=== PATIENT | male | born 1995 | race Hispanic/Latino ===

== ENCOUNTER 2021-06-29 05:03 | Emergency (ER) | payer SELFPAY ==
[2021-06-29] MEDS ORDERED: HYDROcodone/Acetaminophen 5/325 mg Tablet ONE (06:20)
== END 2021-06-29 06:26 | disposition home or self-care (01) ==
LOC: BURERS 05:03
DX: S42.402A Unspecified fracture of lower end of left humerus, initial encounter for closed fracture (principal); I10 Essential (primary) hypertension; W11.XXXA Fall on and from ladder, initial encounter
CPT/HCPCS: 29105

== ENCOUNTER 2023-09-07 17:18 | Emergency (ER) | payer SELFPAY ==
[2023-09-07] MEDS ORDERED: Ondansetron PF 4 MG/2 ML Vial ONE (17:40)
[2023-09-07 17:55] LABS: #Eosinphils 0.2 thou/uL (0.0-0.7); #Monocytes 0.3 thou/uL (0.11-0.59); #Neutrophils 5.7 thou/uL (1.40-6.50); %Basophils 0.5 % (0.0-1.0); %Eosinophils 2.9 % (0.0-10.0); %Lymphocytes 13.8 % (21.0-51.0); %Monocytes 3.9 % (0.0-10.0); %Neutrophils 78.9 % (42.0-75.0); Hematocrit 48.5 % (42.0-52.0); Hemoglobin 16.1 g/dL (14.0-18.0); Mean Corpuscular HGB CONC 33.2 g/dL (32.0-36.0); Mean Corpuscular Hemoglobin 30.6 pg (27.0-31.0); Mean Corpuscular Volume 92.2 fl (78.0-98.0); Mean Platelet Volume 8.5 fL (7.4-10.4); Platelet Count 149 10x3/uL (130-400); RBC Distribution Width 10.8 % (11.5-14.5); Red Blood Cell (RBC) Count 5.27 mill/uL (4.70-6.10); White Blood Cell (WBC) Count 7.2 10x3/uL (4.8-10.8)
[2023-09-07 18:13] LABS: ALT (SGPT) 196 U/L (8-55); AST (SGOT) 89 U/L (5-34); Albumin 4.4 g/dL (3.5-5.0); Alkaline Phosphatase 99 U/L (40-110); Anion Gap 16 mmol/L (10-20); BUN (Urea Nitrogen) 14 mg/dL (8.9-20.6); Bilirubin, Total 0.7 mg/dL (0.2-1.2); Calc. Creatinine Clearance 0 mL/min (70-130); Calcium 9.6 mg/dL (7.8-10.44); Carbon Dioxide 22 mmol/L (22-29); Chloride 101 mmol/L (98-107); Estimated GFR 115; Globulin 3.8 g/dL (2.4-3.5); Glucose 293 mg/dL (70-105); Protein, Total 8.2 g/dL (6.0-8.3); Sodium 135 mmol/L (136-145)
== END 2023-09-07 19:53 | disposition home or self-care (01) ==
LOC: BURERS 17:18
DX: R11.2 Nausea with vomiting, unspecified (principal)
CPT/HCPCS: 80053; 85025; 96361; 96374; J2405

== ENCOUNTER 2023-10-17 21:56 | Emergency (ER) | payer SELFPAY | END 2023-10-17 22:20 | disposition home or self-care (01) | LOC: BURERS 21:56 | DX: S83.92XA Sprain of unspecified site of left knee, initial encounter (principal); W11.XXXA Fall on and from ladder, initial encounter | CPT/HCPCS: 99283 ==

== ENCOUNTER 2024-02-14 15:28 | Emergency (ER) | payer SELFPAY | END 2024-02-14 16:12 | disposition home or self-care (01) | LOC: BURERS 15:28 | DX: L73.9 Follicular disorder, unspecified (principal) | CPT/HCPCS: 99282 ==